=== PATIENT | male | born 1985 ===

== ENCOUNTER 2019-12-23 19:56 | Inpatient (IN) | payer OTHER ==
[~2019-12-23] VITALS: Ht 188 cm; Wt 71.3 kg
[~2019-12-23 19:56] MED LIST: BUPR1 PO; CRUTCH4 USE; Crutch1 EACH MISC; HYDACE5 PO; IBUP800 PO; LORA1 PO; Norco 5-325 Ta1 EACH PO; OXYACE5T PO; RXSULTRIDS PO; RXTRAM50 PO; SULTRIDS PO; TRAM50 PO
[2019-12-23 20:54] LABS: BASOPHILS PERCENT AUTO 0 % (0-2); EOSINOPHILS PERCENT AUTO 0 % (0-6); Hematocrit 37.9 % (37.0-53.0); Hemoglobin 12.3 g/dL (13.5-17.5); IMMATURE GRAN PERCENT AUTO 0 % (0-1); LYMPHOCYTES ABSOLUTE AUTO 0.17 K/mm3 (0.84-5.20); LYMPHOCYTES PERCENT AUTO 9 % (21-46); MONOCYTES PERCENT AUTO 0 % (4-13); Mean Corpuscular HGB 27.9 pg (26.0-34.0); Mean Corpuscular HGB Conc 32.5 g/dL (31.5-36.5); Mean Corpuscular Volume 86 fL (80-100); Mean Platelet Volume 9.1 fL (9.1-12.4); NEUTROPHILS ABSOLUTE AUTO 1.66 K/mm3 (1.96-9.15); NEUTROPHILS PERCENT AUTO 91 % (41-73); Platelet Count 132 K/mm3 (150-400); RDW Standard Deviation 40.5 fL (35.1-46.3); Red Blood Cell Count 4.41 M/mm3 (4.30-5.90); White Blood Cell Count 1.83 K/mm3 (4.00-11.30)
[2019-12-23 21:15] LABS: Ethanol (Alcohol), Blood, Med <3 mg/dL; Salicylate <1.7 mg/dL (2.8-20.0)
[2019-12-23 21:16] LABS: Alanine Aminotransfer (ALT/SGP 75 U/L (12-78); Albumin, Blood 3.5 g/dL (3.4-5.0); Albumin/Globulin Ratio 1.1 (0.8-1.8); Alk Phos 121 U/L (50-136); Anion Gap 6 mmol/L (6-16); Aspartate Aminotrans (AST/SGOT 136 U/L (12-37); Bilirubin, Total 0.9 mg/dL (0.1-1.0); Blood Urea Nitrogen 7 mg/dL (8-24); CO2, Blood 30 mmol/L (21-32); Calcium, Blood 7.7 mg/dL (8.5-10.1); Chloride, Blood 104 mmol/L (98-108); Creatinine, Blood 1.17 mg/dL (0.60-1.20); Globulin, Blood 3.3 g/dL (2.2-4.0); Glomerular Filtration Rate >60 (60-); Glucose, Blood 88 mg/dL (70-99); Potassium, Blood 2.9 mmol/L (3.5-5.5); Sodium, Blood 140 mmol/L (136-145); Total Protein, Blood 6.8 g/dL (6.4-8.2)
[2019-12-23 21:21] LABS: Acetaminophen, Random <2.0 ug/mL (10.0-30.0)
[2019-12-23 21:22] LABS: Source, Urine Catheter
[2019-12-23 21:25] LABS: Bilirubin, Urine Neg (Neg); Blood, Urine Neg (Neg); Glucose Qualitative, Urine Neg (Neg); Ketones, Urine Neg (Neg); Leukocyte Esterase, Urine Neg (Neg); Nitrite, Urine Neg (Neg); Protein, Urine 2+ (Neg); Urobilinogen, Urine NORM (Normal)
[2019-12-23 21:37] LABS: U Amphetamine Screen DETECTED; U Barbituate Screen Not Detected; U Benzodiazapine Screen Not Detected; U Buprenorphine Screen Not Detected; U Cannabinoids Screen Not Detected; U Cocaine Screen Not Detected; U Methadone Screen Not Detected; U Methamphetamine Screen DETECTED; U Opiates Screen DETECTED; U Oxycodone Screen Not Detected; U Phencyclidine Screen Not Detected; U Propoxyphene Screen Not Detected
[2019-12-23 21:43] LABS: Appearance, Urine Clear (Clear); Color, Urine Yellow (P-Yellow)
[2019-12-23 21:45] LABS: Bacteria Rare /hpf; Mucus Mod (0-Heavy); Red Blood Cells, Urine Rare /hpf (0-2); Squamous Epithelial Cells Not Seen /hpf (Few); White Blood Cells, Urine Rare /hpf (0-5)
[2019-12-23 21:58] LABS: CPK Creatine Kinase 256 U/L (39-308)
[2019-12-23 22:06] LABS: International Normalized Ratio 1.29; Prothrombin Time Results 13.6 Sec (9.7-11.5)
--- NOTE | 2019-12-24 01:30 | NUR ---
PT TO ICU 3 FROM ED AT 0120. PT APPEARS PALE, AND MALNOURISHED, IS MINIMALLY RESPONSIVE, EYE LIDS PARTIALLY OPEN AND EYES ROLLED TO THE BACK OF HIS HEAD. PT MINIMALLY RESPONSIVE VERBALLY AND UNABLE TO COMPLETE HEALTH HISTORY. PT ON 15L NONREBREATHER TO MAINTAIN SATS>90%.
--- NOTE | 2019-12-24 02:00 | NUR ---
PT HYPOTENSIVE AND UNCOOPERATIVE WITH CARE. PT REMOVING OXYGEN AND PULLING AT IV'S. PT CURSING AT STAFF AND KICKING BED. CALL TO DR. ASKEW, ORDER FOR 2L LR BOLUS AND BILATERAL SOFT WRIST RESTRAINTS.
[2019-12-24 02:24] LABS: Hematocrit 36.7 % (37.0-53.0); Mean Corpuscular HGB 28.4 pg (26.0-34.0); Mean Corpuscular HGB Conc 32.7 g/dL (31.5-36.5); Mean Corpuscular Volume 87 fL (80-100); Platelet Count 123 K/mm3 (150-400); RDW Coefficient Variation 13.2 % (11.7-14.2); RDW Standard Deviation 41.3 fL (35.1-46.3); Red Blood Cell Count 4.23 M/mm3 (4.30-5.90); White Blood Cell Count 10.26 K/mm3 (4.00-11.30)
[2019-12-24 02:41] LABS: Anion Gap 6 mmol/L (6-16); Blood Urea Nitrogen 10 mg/dL (8-24); Bun/Creatinine Ratio 8.9 (12.0-20.0); CO2, Blood 27 mmol/L (21-32); Chloride, Blood 110 mmol/L (98-108); Creatinine, Blood 1.12 mg/dL (0.60-1.20); Glomerular Filtration Rate >60 (60-); Glucose, Blood 87 mg/dL (70-99); Potassium, Blood 2.9 mmol/L (3.5-5.5); Sodium, Blood 143 mmol/L (136-145)
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
--- NOTE | 2019-12-24 03:39 | NUR ---
PT CONTINUES TO TAKE NONREBREATHER OFF. PT ATTEMPTING TO BITE STAFF AND HIT WHEN PLACING NC. EXPLAINED TO PT THE IMPORTANCE OF WEARING OXYGEN. PT STATES HE WISHES TO LEAVE AMA, REMINDED THAT HE IS VERY SICK AND UNABLE TO PHYSICALLY AMBULATE. PT YELLING "HELP" FROM ROOM.
--- NOTE | 2019-12-24 05:42 | NUR ---
SHIFT SUMMARY PT GIVEN 2MG ATIVAN PER PHYSICIAN ORDER D/T AGITATION. PT RESPONDED WELL AND IS RESTING QUIETLY AND SUPPLEMENTAL OXYGEN NEEDS DECREASED TO 4LNC. PT CONTINUES TO BE HYPOTENSIVE, CALL TO DR. AZAR COTO FOR ADDITIONAL 1L LR BOLUS AND 150ML/HR LR MAINTENANCE FLUID. PLEASE SEE PREVIOUS NOTES FROM THIS SHIFT. WILL REPORT TO DAYSHIFT NURSE.
--- NOTE | 2019-12-24 07:41 | NUR ---
BEGINNING OF SHIFT Assumed care at 0700. Bedside report received from Parth CADET. Pt responsive to verbal simulus. Pt on 8 LPM oxymizer. SpO2 99%. Titrated to [address] per monitor, rate 100. BP low, however MAP is 65 or greater. LR infusing through peripheral IV at 150 mL/hr.
--- NOTE | 2019-12-24 13:03 | NUR ---
DR CINTRON IN TO SEE PT Pt currently on room air. BP stable. Provider states pt is okay for medical floor status with telemetry.
[2019-12-24 13:39] LABS: Anion Gap 8 mmol/L (6-16); Blood Urea Nitrogen 14 mg/dL (8-24); Bun/Creatinine Ratio 16.1 (12.0-20.0); CO2, Blood 24 mmol/L (21-32); Calcium, Blood 7.2 mg/dL (8.5-10.1); Chloride, Blood 111 mmol/L (98-108); Creatinine, Blood 0.87 mg/dL (0.60-1.20); Glomerular Filtration Rate >60 (60-); Glucose, Blood 84 mg/dL (70-99); Potassium, Blood 3.3 mmol/L (3.5-5.5); Sodium, Blood 143 mmol/L (136-145)
--- NOTE | 2019-12-24 17:35 | NUR ---
UPDATE Pt transferred to medical floor. Pt on room air at time of transfer. Chart, medications, and belonings transferred with patient. Pt A&O x 2 at time of transfer. Pt reporting hunger but has not eaten food at bedside. Pt drinking fluids, tolerating well.
--- NOTE | 2019-12-24 18:28 | NUR ---
PT TRANSFERRED TO ROOM 349 FROM ICU VIA W/C. HAS BEEN MINIMALLY COMMUNICATIVE. TRANSFERRED TO BED WITH SBA. FELL ASLEEP SOON HE GOT IN BED. DID ROUSE HIM TO HELP HIM WASH OLD BLOOD OFF HIS NOSE AND PUSHED THE WASHCLOTH AWAY. DID COOPERATE WITH HOOKING HIS IVS UP FOR FLUIDS AND ANTIBIOTICS. AT ONE POINT WOKE UP AND EXPRESSING CONCERN FOR HIS CAT. WHEN ASKED IF THERE WAS ANYONE WHO COULD BE CALLED HE RESPONDED "SORRY I'M NOT FUCKING GOOD YOU AND DON'T HAVE FRIENDS." FOOD PLACED IN FRONT OF HIM WHEN ASKED IF HE WAS HUNGRY.
--- NOTE | 2019-12-24 20:54 | NUR ---
AMA PT REQUESTING TO LEAVE AMA. HE REMAINS CONFUSED ABOUT THE AMOUNT OF TIME THAT HE HAS BEEN HERE BUT IS ALERT AND ORIENTED X 4. ATTEMPTED TO CONVINCE PT TO STAY AND EDUCATED ON WHY IT WAS IMPORTANT THAT PT REMAIN IN THE HOSPITAL. PT VERY IRRITABLE, SCREAMING AT THIS RN, "I KNOW MY RIGHTS, I KNOW I CAN LEAVE". STATED THAT HIS MOM AND DAD WERE COMING TO PICK HIM UP. PT STATED THAT HE DID NOT WANT ME TELLING HIS PARENTS "ANYTHING". ARASH BRAXTON NOTIFIED. WHO STATED TO HAVE PT SIGN AMA FORMS. CALLED AND SPOKE TO PT'S MOM (ALTAGRACIA) TO CONFIRM THAT THEY WERE COMING TO PICK HIM UP. SHE STATED THAT WAS ON HIS WAY IN AND THAT HE WAS GOING TO TRY TO CONVICE PT TO STAY. AMA FORM SIGNED BY PT AND BY SECOND RN ARMAAN SMART. THIS RN WITH AWAIT ARRIVAL OF PT'S FATHER AND CONTINUE TO MONITOR.
--- NOTE | 2019-12-24 21:31 | NUR ---
PT'S FATHER (CYNTHIA) CAME IN TO SEE PT. CYNTHIA STATED THAT HE WOULD NOT BE TAKING PT HOME. THAT PT WAS TOO SICK TO LEAVE. PT IS VERY WEAK. HE WAS ABLE TO STAND AND TRANSFER TO THE [facility] BUT THE FUNERAL HOME DIRECTOR REPORTED THAT HE WAS VERY WEAK AND HAD DIFFICULTY EVEN WITH THAT SHORT DISTANCE. PT WORRIED ABOUT A CAT THAT HE HAS AT HIS APARTMENT BEING FED. ATTEMPTED TO FIND PT'S KEYS SO PT'S FATHER COULD GO FEED PT'S CAT BUT WAS UNABLE TO FIND THEM IN PT'S BELONGINGS. PT AGREED TO STAY THIS EVENING BUT STATES THAT HE IS LEAVING TOMORROW. PT RESTING AT THIS TIME. WILL NOT ANSWER ANY FURTHER QUESTIONS.
--- NOTE | 2019-12-25 01:10 | NUR ---
TELEMETRY REFUSAL AND INCREASED AGITATION PT HAVING FREQUENT DIARRHEA. SETTING OFF BED ALARM TO GET TO BSC AND UPSET ABOUT ALARM BEING ON. PT PULLED OFF TELEMETRY AND STATED, "DO NOT PUT THAT BACK ON ME" TO THE BRAZING MACHINE OPERATOR, PT ALSO ASKED BRAZING MACHINE OPERATOR TO TAKE OUT HIS IV'S. BRAZING MACHINE OPERATOR NOTIFIED THIS RN OF BEHAVIOR. THIS RN EDUCATED PT ON IMPORTANCE OF TELEMETRY BUT PT CONTINUED TO REFUSE. STATING "YOU CAN ONLY LEAVE THE IV'S IN". PT THEN REQUESTED A PROTIEN BAR AND GOT VERY ANGRY WHEN TOLD THAT WE DONT HAVE PROTIEN BARS, OFFERED MULTIPLE OTHER SNACKS. PT YELLING AND CURSING AT BRAZING MACHINE OPERATOR AND I. AFTER TELLING THE PT THAT HE COULD NOT TALK TO STAFF LIKE THAT, PT YELLED, "GO FUCK YOURSELF". NOTIFIED DR. TAYLOR OF TELEMETRY REFUSAL AND FREQUENT DIARRHEA. NEW ORDERS FOR IMODIUM 4 MG NOW AND 2 MG Q 4 HRS PRN. ONE TIME IMODIUM DOSE GIVEN. 2 MG IV ATIVAN ALSO GIVEN FOR ANXIETY.
--- NOTE | 2019-12-25 05:35 | NUR ---
SHIFT SUMMARY PT IRRITABLE AND NONCOMPLIANT MOST OF THE NIGHT. DIFFICULT TO ASSESS MENTATION AT TIMES PT WILL ONLY ANSWER QUESTIONS INTERMITTENTLY. HOWEVER WITH INITIAL ORIENTATION QUESTIONS PT WAS A/O X 4. PT DOES APPEAR TO BE SLIGHTLY CONFUSED AT TIMES. WANTS TO BE LEFT ALONE AND WANTS TO SLEEP. PT REFUSED MORNING LAB DRAWS AND VITAL SIGNS THIS AM. PT PULLED OFF AND REFUSED TELE TO BE REPLACED. PT DID LEAVE IV'S IN PLACE. PT STATED AT START OF SHIFT THAT HE WANTED TO GO AMA. SEE PREVIOUS NOTE. PT AGREED TO STAY THE NIGHT AFTER FATHER, CYNTHIA, CAME IN AND SPOKE WITH HIM. PT APPEARS MALNOURISHED, IS VERY WEAK. PT HAD DIARRHEA THROUGHOUT THE NIGHT. IMODIUM ORDERED AND GIVEN X 1 WITH SOME IMPROVEMENT. PT BECOMES EASILY AGITATED. YELLS AND CURSES AT STAFF. ATIVAN 2 MG IV GIVEN X 1. PT REFUSED TO PUT ON ANY CLOTHES. ONLY WANTING SHEETS AND BLANKETS ON HIM. SPOKE WITH MOTHER ALTAGRACIA ON THE PHONE AND FATHER CYNTHIA IN PERSON AT BEDSIDE. NO MEDICAL INFORMATION WAS RELEASED PT REQUESTED THAT NOTHING BE DISCUSSED WITH ANYONE OTHER THAN HIMSELF. PT'S RESPIRATIONS INCREASED AND BECOME MORE INCREASED WHEN PT IS WORKED UP OR GETTING UP TO BSC. PT AFEBRILE. WILL CONTINUE TO MONITOR.
--- NOTE | 2019-12-25 08:30 | NUR ---
PT STATING HE WANTS TO LEAVE AND WANTS TO CALL HIS MOM TO PICK HIM UP. DISCUSSED WITH PT HE IS HAS AN INFECTION AND IS GETTING ANTIBIOTICS. HE SAID HE FEELS BETTER AND WANTS TO GO HOME. CALLED DR. CINTRON ABOUT PT GETTING READY TO LEAVE. PT HAD TRANSFERRED TO BSC AT SHIFT CHANGE PULLING IV OUT AND APPEARED VERY UNSTEADY ON HIS FEET. MD ARRIVED TO SPEAK WITH PT WHO WAS TALKING TO HIM MOM ON THE PHONE. ATTEMPTED TO EXPLAIN TO PT WHY HE NEEDED TO STAY IN THE HOSPITAL AND ASKED FOR HIM TO REPEAT BACK WHAT SHE HAD SAID. DID SAY HE COULD GET WORSE BUT DIDN'T ELABORATE BEYOND THAT. DISCUSSION HAS BEGAN ABOUT CURRENT UNDERSTANDING OF CONDITION AND POSSIBLE NEED TO HOLD ORDERS.
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
[2019-12-25 13:40] LABS: Hematocrit 35.3 % (37.0-53.0); Hemoglobin 11.8 g/dL (13.5-17.5); Mean Corpuscular HGB 27.7 pg (26.0-34.0); Mean Corpuscular HGB Conc 33.4 g/dL (31.5-36.5); Mean Corpuscular Volume 83 fL (80-100); Mean Platelet Volume 11.3 fL (9.1-12.4); Platelet Count 71 K/mm3 (150-400); RDW Coefficient Variation 13.3 % (11.7-14.2); RDW Standard Deviation 40.3 fL (35.1-46.3); Red Blood Cell Count 4.26 M/mm3 (4.30-5.90); White Blood Cell Count 25.75 K/mm3 (4.00-11.30)
[2019-12-25 13:56] LABS: Alanine Aminotransfer (ALT/SGP 101 U/L (12-78); Albumin, Blood 2.5 g/dL (3.4-5.0); Albumin/Globulin Ratio 0.9 (0.8-1.8); Alk Phos 107 U/L (50-136); Anion Gap 7 mmol/L (6-16); Aspartate Aminotrans (AST/SGOT 116 U/L (12-37); Blood Urea Nitrogen 19 mg/dL (8-24); Bun/Creatinine Ratio 23.9 (12.0-20.0); CO2, Blood 24 mmol/L (21-32); Calcium, Blood 7.2 mg/dL (8.5-10.1); Chloride, Blood 108 mmol/L (98-108); Globulin, Blood 2.8 g/dL (2.2-4.0); Glomerular Filtration Rate >60 (60-); Glucose, Blood 91 mg/dL (70-99); Magnesium, Blood 1.8 mg/dL (1.6-2.4); Sodium, Blood 139 mmol/L (136-145); Total Protein, Blood 5.3 g/dL (6.4-8.2)
[2019-12-25 14:05] LABS: BAND PERCENT MAN 31 % (0-8); BASOPHILS PERCENT MAN 0 % (0-2); EOSINOPHILS PERCENT MAN 0 % (0-6); MONOCYTES ABSOLUTE MAN 0.25 K/mm3 (0.16-1.47); MONOCYTES PERCENT MAN 1 % (4-13); NEUTROPHILS ABSOLUTE MAN 25.49 K/mm3 (1.96-9.15); SEG NEUTROPHILS PERCENT MAN 68 % (41-73); TOTAL CELLS COUNTED 100
--- NOTE | 2019-12-25 15:30 | NUR ---
PTS MOTHER BROUGHT SOME EXTRA CLOTHES FOR PT WHICH WAS DELIVERED BY TENT TRANSPORTER. LET PT KNOW THE CLOTHES WERE IN THE ROOM. ALSO MENTIONED HIS MOTHER CHECKED ON HIS CAT. BRIEF CONVERSATION SEEMED TO GO WELL. THEN PT ASKED ABOUT WHEN "THAT DR." WOULD BE HERE. DR. RAMOS HAD SEEN PT APPROX 2-1 HOURS AGO. EXPLAINED TO PT MD HAD ALREADY BEEN HERE AND HE HAD RECOMMENDED PT TO REMAIN ON THE HOLD. PT BEGAN TO ARGUE WITH ME AND I LEFT THE ROOM. PT BEGAN THROWING HIS DRINKS FROM HIS TABLE AND ANYTHING ELSE HE COULD REACH. FIRMLY EXPLAINED TO PT HIS INAAPRORPRIATE BEHAVIOR AND HE SAID "AND WHAT ARE YOU GOING TO GO ABOUT IT" PRIOR TO THIS INCIDENT PT HAD GOTTEN HIMSELF DRESSED IN WHAT CLOTHES HIS MOTHER HAD DELIVERED. STARTED SAYING HE WAS LEAVING AND HAD TO GO HOME. HE WAS WELL ENOUGH TO LEAVE AND WE HAD NO REASON TO KEEP HIM HERE. ATTEMPTED TO EXPLAIN WHY HE IS STILL IN THE HOSPITAL BUT HE SAID HES FINE AND HE NEEDS TO GO HOME. CALLED SKATE BOARDER AND SECURITY. SKATE BOARDER ALSO ATTEMPTED TO DISCUSS WITH PT WHY HE NEEDS TO STAY AND IF HE DOES LEAVE THE POLICE WILL BE CALLED DUE TO THE HOLD. PT ARGUED DURING THE CONVERSATION BUT THEN LAYED DOWN AND WAS QUIET UNTIL BELONGINGS BROUGHTManuel RAMOS IN THE ROOM EARLIER AND PT WAS STILL ASKING WHEN "THAT DR" WOULD BE HERE. EXPLAINED TO HIM HAD ALREADY BEEN HERE.
--- NOTE | 2019-12-25 19:17 | NUR ---
SHIFT SUMMARY PT HAS BEEN QUIET SINCE LAST CONFRONTATION. LAYING IN BED WITH EYES CLOSED AND ROLLING AROUND IN BED. REPORT GIVEN TO ONCOMING SHIFT.
--- NOTE | 2019-12-26 04:40 | NUR ---
SHIFT SUMMARY PT MORE COOPERATIVE THIS EVENING. REMAINS SLIGHTLY CONFUSED AND APPEARS TO UNAWARE, EVEN AFTER BEING EDUCATED, OF HOW SICK HE IS. CONTINUES TO BE UNSTEADY ON HIS FEET. DOES NOT CALL APPROPRIATELY AND EXPRESSES IRRITATION WITH BED ALARM ON BED WHEN SETTING IT OFF. PT APPEARS MALNOURISHED AND CONTINUES TO BE WEAK. PT DID REQUEST JUICE AND JELLO THIS EVENING. DRINKING ALL THE JUICE AND EATING ALL THE JELLO. DIARRHEA RESOLVED. NO EPISODES TONIGHT. PT DOES BECOME EASILY ANGRY WITH STAFF BUT HAD MINIMAL OUTBURSTS THIS EVENING. PT UPSET ABOUT BEING ON 2 MD HOLD AND FREQUENTLY EXPRESSES HIS WISHES TO GO HOME. VITAL SIGNS STABLE. WILL CONTINUE TO MONITOR.
[2019-12-26 10:29] LABS: Hematocrit 33.8 % (37.0-53.0); Hemoglobin 11.3 g/dL (13.5-17.5); Mean Corpuscular HGB 27.9 pg (26.0-34.0); Mean Corpuscular HGB Conc 33.4 g/dL (31.5-36.5); Mean Corpuscular Volume 84 fL (80-100); Mean Platelet Volume 11.9 fL (9.1-12.4); Platelet Count 60 K/mm3 (150-400); RDW Coefficient Variation 13.3 % (11.7-14.2); RDW Standard Deviation 41.1 fL (35.1-46.3); Red Blood Cell Count 4.05 M/mm3 (4.30-5.90); White Blood Cell Count 15.98 K/mm3 (4.00-11.30)
[2019-12-26 10:47] LABS: Alanine Aminotransfer (ALT/SGP 79 U/L (12-78); Albumin, Blood 2.3 g/dL (3.4-5.0); Albumin/Globulin Ratio 0.7 (0.8-1.8); Alk Phos 117 U/L (50-136); Anion Gap 5 mmol/L (6-16); Aspartate Aminotrans (AST/SGOT 107 U/L (12-37); Bilirubin, Total 3.8 mg/dL (0.1-1.0); Blood Urea Nitrogen 12 mg/dL (8-24); Bun/Creatinine Ratio 16.7 (12.0-20.0); CO2, Blood 26 mmol/L (21-32); Calcium, Blood 7.3 mg/dL (8.5-10.1); Chloride, Blood 113 mmol/L (98-108); Creatinine, Blood 0.72 mg/dL (0.60-1.20); Globulin, Blood 3.1 g/dL (2.2-4.0); Glomerular Filtration Rate >60 (60-); Glucose, Blood 78 mg/dL (70-99); Potassium, Blood 3.2 mmol/L (3.5-5.5); Sodium, Blood 144 mmol/L (136-145); Total Protein, Blood 5.4 g/dL (6.4-8.2)
[2019-12-26 10:57] LABS: BAND PERCENT MAN 15 % (0-8); BASOPHILS PERCENT MAN 0 % (0-2); EOSINOPHILS ABSOLUTE MAN 0.15 K/mm3 (0.00-0.68); EOSINOPHILS PERCENT MAN 1 % (0-6); LYMPHOCYTES ABSOLUTE MAN 0.31 K/mm3 (0.84-5.20); LYMPHOCYTES PERCENT MAN 2 % (21-46); MONOCYTES ABSOLUTE MAN 0.31 K/mm3 (0.16-1.47); MONOCYTES PERCENT MAN 2 % (4-13); NEUTROPHILS ABSOLUTE MAN 15.18 K/mm3 (1.96-9.15); SEG NEUTROPHILS PERCENT MAN 80 % (41-73); TOTAL CELLS COUNTED 100
--- NOTE | 2019-12-26 18:26 | NUR ---
officer in to visit, pt stated that he could have access to his medical info, replied to his questions based on the dr's notes and physical observations, family in to visit (grandmother and mother), at one time pt stated he was going to leave and asked what the staff was going to do about it, told him that since the door was locked we would do nothing to force him back into his room, pt stood by the exit door, until he was told that security was coming then he returned to his rm and accused staff of many things, he asked for contact info on the pt advocate, security provided him with a card, he has been resting in his rm for most of the shift, he is noncompliant but even when he was walking out the door he took his iv pole with him since staff would not on hook him, call light in reach, rm air, abx infusing with no s/sx of infection or infiltration
--- NOTE | 2019-12-27 04:50 | NUR ---
SHIFT SUMMARY PT HAS BEEN COOPERATIVE AND PLESANT. PT STILL COMPLAINING OF INABILITY TO SLEEP. PT HAS BEEN VOIDING REGULARLY. PT HAD SOME NAUSEA AT BEGINNING OF SHIFT THAT RESOLVED ON OWN. PT REQUESTED A NICOTINE PATCH, ONE WAS ORDERED. PT CURRENTLY SLEEPING AND IN NO DISTRESS. CALL LIGHT IN REACH.
[2019-12-27 06:03] LABS: Hematocrit 32.8 % (37.0-53.0); Mean Corpuscular HGB 27.6 pg (26.0-34.0); Mean Corpuscular HGB Conc 33.5 g/dL (31.5-36.5); Mean Corpuscular Volume 82 fL (80-100); Mean Platelet Volume 11.9 fL (9.1-12.4); Platelet Count 62 K/mm3 (150-400); RDW Coefficient Variation 13.2 % (11.7-14.2); RDW Standard Deviation 40.1 fL (35.1-46.3); Red Blood Cell Count 3.98 M/mm3 (4.30-5.90); White Blood Cell Count 14.76 K/mm3 (4.00-11.30)
[2019-12-27 06:27] LABS: BAND PERCENT MAN 10 % (0-8); BASOPHILS PERCENT MAN 0 % (0-2); EOSINOPHILS PERCENT MAN 0 % (0-6); LYMPHOCYTES ABSOLUTE MAN 0.29 K/mm3 (0.84-5.20); LYMPHOCYTES PERCENT MAN 2 % (21-46); MONOCYTES ABSOLUTE MAN 0.44 K/mm3 (0.16-1.47); MONOCYTES PERCENT MAN 3 % (4-13); NEUTROPHILS ABSOLUTE MAN 14.02 K/mm3 (1.96-9.15); SEG NEUTROPHILS PERCENT MAN 85 % (41-73); TOTAL CELLS COUNTED 100
[2019-12-27 06:32] LABS: Alanine Aminotransfer (ALT/SGP 67 U/L (12-78); Albumin, Blood 2.3 g/dL (3.4-5.0); Albumin/Globulin Ratio 0.7 (0.8-1.8); Alk Phos 163 U/L (50-136); Anion Gap 8 mmol/L (6-16); Aspartate Aminotrans (AST/SGOT 81 U/L (12-37); Bilirubin, Total 3.1 mg/dL (0.1-1.0); Blood Urea Nitrogen 9 mg/dL (8-24); CO2, Blood 23 mmol/L (21-32); Calcium, Blood 7.4 mg/dL (8.5-10.1); Chloride, Blood 114 mmol/L (98-108); Creatinine, Blood 0.65 mg/dL (0.60-1.20); Globulin, Blood 3.2 g/dL (2.2-4.0); Glomerular Filtration Rate >60 (60-); Glucose, Blood 93 mg/dL (70-99); Potassium, Blood 3.2 mmol/L (3.5-5.5); Sodium, Blood 145 mmol/L (136-145); Total Protein, Blood 5.5 g/dL (6.4-8.2)
--- NOTE | 2019-12-27 18:04 | NUR ---
a+o but childish, call light in reach, abx and LR alternating with no s/sx of infection or infiltration, family in to visit, much less anger expressed by pt, spent the majority of the day sleeping and watching tv, rm air, call light in reach, alarm turned off, no behavior post promised he could go home tomorrow
--- NOTE | 2019-12-28 04:25 | NUR ---
SUMMARY PT HAS SLEPT MORE THIS SHIFT. PT HAS BEEN SLEEPING SINCE NIGHT MEDS. PT HAS BEEN UP TO VOID FREQUENTLY. PT HAS BEEN COOPERATIVE AND PLESANT THIS SHIFT. PT CURRENTLY SLEEPING AND IN NO DISTRESS. CALL LIGHT IN REACH.
[2019-12-28 05:26] LABS: BASOPHILS ABSOLUTE AUTO 0.05 K/mm3 (0.00-0.23); BASOPHILS PERCENT AUTO 0 % (0-2); EOSINOPHILS ABSOLUTE AUTO 0.14 K/mm3 (0.00-0.68); EOSINOPHILS PERCENT AUTO 1 % (0-6); Hematocrit 33.9 % (37.0-53.0); Hemoglobin 11.2 g/dL (13.5-17.5); IMMATURE GRAN ABSOLUTE AUTO 0.11 K/mm3 (0.00-0.10); IMMATURE GRAN PERCENT AUTO 1 % (0-1); LYMPHOCYTES PERCENT AUTO 12 % (21-46); MONOCYTES PERCENT AUTO 10 % (4-13); Mean Corpuscular HGB 27.7 pg (26.0-34.0); Mean Corpuscular Volume 84 fL (80-100); Mean Platelet Volume 11.4 fL (9.1-12.4); NEUTROPHILS ABSOLUTE AUTO 8.83 K/mm3 (1.96-9.15); NEUTROPHILS PERCENT AUTO 75 % (41-73); Platelet Count 73 K/mm3 (150-400); RDW Coefficient Variation 13.5 % (11.7-14.2); RDW Standard Deviation 42.2 fL (35.1-46.3); Red Blood Cell Count 4.05 M/mm3 (4.30-5.90); White Blood Cell Count 11.73 K/mm3 (4.00-11.30)
[2019-12-28 05:50] LABS: Anion Gap 4 mmol/L (6-16); Blood Urea Nitrogen 9 mg/dL (8-24); Bun/Creatinine Ratio 13.1 (12.0-20.0); CO2, Blood 26 mmol/L (21-32); Calcium, Blood 7.6 mg/dL (8.5-10.1); Chloride, Blood 112 mmol/L (98-108); Creatinine, Blood 0.69 mg/dL (0.60-1.20); Glomerular Filtration Rate >60 (60-); Glucose, Blood 101 mg/dL (70-99); Potassium, Blood 3.7 mmol/L (3.5-5.5); Sodium, Blood 142 mmol/L (136-145)
[2019-12-28] MEDS ORDERED: PROBIOTIC1 EAC7 PO (11:37)
[2019-12-28] MEDS ORDERED: LEVO750 PO (11:40)
== END 2019-12-28 11:55 | disposition home or self-care (01) | DRG 871 ==
LOC: ER 19:56 → MEDS 23:17 → ICUE 23:17 → ICUW 23:17 → ICUE 12-24 01:20 → MEDS 12-24 17:15
PROVIDERS: Emergency Medicine; Internal Medicine; ADMIT Internal Medicine
DX: A41.9 Sepsis, unspecified organism (principal); J96.01 Acute respiratory failure with hypoxia; G92 Toxic encephalopathy; J69.0 Pneumonitis due to inhalation of food and vomit; D61.818 Other pancytopenia; F15.121 Other stimulant abuse with intoxication delirium; E87.6 Hypokalemia; R65.20 Severe sepsis without septic shock; D69.6 Thrombocytopenia, unspecified; Z87.891 Personal history of nicotine dependence
CPT/HCPCS: 36415; 51701; 70450; 71260; 72125; 74177; 80048; 80053; 81001; 82550; 82947; 83605; 83735; 84132; 85025; 85027; 85610; 85730; 87040; 96361-59; 96365-59; 96366-59; 96367-59; 96375; 96375-59; 96376-59; 99285-25; A9270; G0480; J2060; J2310; J2405; J2543; J3370; J3480; J7030; J7050; J7120; Q9967; U0002

== ENCOUNTER → 2020-09-04 | Outpatient (CLI) | payer OTHER ==
[~2020-09-04] MED LIST changes: +LEVO750 PO; +PROBIOTIC1 EAC7 PO
== END | disposition home or self-care (01) ==
LOC: LAB SHORT 16:45 → PLD 16:45
DX: L03.115 Cellulitis of right lower limb (principal); L03.116 Cellulitis of left lower limb
CPT/HCPCS: 87070; 87075; 87077; 87147; 87186; 87205